=== PATIENT | female | born 1995 | race Caucasian/White ===

== ENCOUNTER 2017-03-23 07:44 | Emergency (ER) | payer MEDICAID, OTHER ==
[~2017-03-23] VITALS: Wt 78.0 kg
[2017-03-23] MEDS ORDERED: IBUPROFEN 200 MG TAB PO STA (08:17)
[2017-03-23] MEDS ORDERED: ACETAMINOPHEN 500 MG TAB PO STA (08:17)
--- NOTE | 2017-03-23 08:21 | ERD ---
ER Documentation Chief Complaint Chief Complaint FEVER AND BODY ACHES SINCE LAST NIGHT. NO COUGH NO SOB OR CP NOTED. HPI 21 year old female complaining of fever, body aches since last night. Patient does admit to having nasal congestion last night. She denies any chest pain, cough, shortness of breath, sore throat, ear pain. Patient states that she does have right lower back pain. Denies dysuria, hematuria ROS All systems reviewed and are negative except as per history of present illness. Medications Home Meds Active Scripts Ibuprofen* (Ibuprofen*) 400 Mg Tablet, 400 MG PO Q6H Y for PAIN, #30 TAB Prov:JACKIE BENITEZ PA-C 03/23/17 Acetaminophen* (Tylenol*) 325 Mg Tablet, 2 TAB PO Q4 Y for PAIN AND OR ELEVATED TEMP, #30 TAB Prov:JACKIE BENITEZ PA-C 03/23/17 Allergies Allergies: Coded Allergies: No Known Allergy (Unverified , 03/23/17) PMhx/Soc History of Surgery: No Anesthesia Reaction: No Hx Neurological Disorder: No Hx Respiratory Disorders: No Hx Cardiac Disorders: No Hx Psychiatric Problems: No Hx Miscellaneous Medical Probl: No Hx Alcohol Use: No Hx Substance Use: No Hx Tobacco Use: No Physical Exam Vitals Vital Signs Date Time Temp Pulse Resp B/P Pulse Ox O2 Delivery O2 Flow Rate FiO2 03/23/17 09:52 99.1 99 101/56 97 Room Air 03/23/17 07:48 101.1 115 20 117/66 99 Physical Exam Const: Developed well-nourished no acute distress Head: Atraumatic Eyes: Normal Conjunctiva ENT: Normal External Ears, Nose and Mouth. Bilateral tympanic membrane is clear Neck: Full range of motion..~ No meningismus. Resp: Clear to auscultation bilaterally Cardio: Regular rate and rhythm, no murmurs Abd: Soft, non tender, non distended. Normal bowel sounds Skin: No petechiae or rashes Back: No midline or flank tenderness Ext: No cyanosis, or edema Neur: Awake and alert Psych: Normal Mood and Affect Results 24 hrs Laboratory Tests Test 03/23/17 08:20 Urine Color YELLOW Urine Clarity CLEAR Urine pH 5.0 Urine Specific [place] 1.027 Urine Ketones NEGATIVEmg/dL Urine Nitrite NEGATIVEmg/dL Urine Bilirubin NEGATIVEmg/dL Urine Urobilinogen NEGATIVEmg/dL Urine Leukocyte Esterase TRACELeu/ul Urine Microscopic RBC 2/HPF Urine Microscopic WBC 5/HPF Urine Squamous Epithelial Cells FEW/HPF Urine Mucus FEW/HPF Urine Hemoglobin NEGATIVEmg/dL Urine Glucose NEGATIVEmg/dL Urine Total Protein NEGATIVEmg/dl Current Medications Medications (Trade) Dose Ordered Sig/Kamryn Route PRN Reason Start Time Stop Time Status Last Admin Dose Admin Acetaminophen (Tylenol Tab) 1,000 mg ONCE STAT PO 03/23/17 08:17 03/23/17 08:18 DC 03/23/17 08:30 Ibuprofen (Motrin) 400 mg ONCE STAT PO 03/23/17 08:17 03/23/17 08:18 DC 03/23/17 08:30 Procedures/MDM 21-year-old female presents to the emergency department with fever since last night, was no evidence of meningitis, pneumonia, urinary tract infection. Patient did not have any evidence of sepsis. She appears well and nontoxic. She was given Tylenol and ibuprofen in the ED, she significant feels a lot better. Vitals are stabilized, patient is able to be discharged home to return to the ER for any worsening signs or symptoms. She understands and agrees with this plan Departure Diagnosis: Primary Impression: Fever Condition: Stable JACKIE BENITEZ PA-C Mar 23, 2017 08:21
[2017-03-23 09:24] LABS: ADD UMIC YES; UR ASCORBIC ACID NEGATIVE (NEGATIVE); UR BILIRUBIN (Dip) NEGATIVE (NEGATIVE); UR BLOOD (Dip) NEGATIVE (NEGATIVE); UR CLARITY CLEAR (CLEAR); UR COLOR YELLOW (YELLOW); UR GLUCOSE (Dip) NEGATIVE (NEGATIVE); UR KETONES (Dip) NEGATIVE (NEGATIVE); UR LEUKOCYTE ESTERASE (Dip) TRACE Leu/ul (NEGATIVE); UR MUCUS FEW /HPF (NONE SEEN); UR NITRITE (Dip) NEGATIVE (NEGATIVE); UR RBC 2 /HPF (0-5); UR SPECIFIC GRAVITY (Dip) 1.027 (1.003-1.030); UR SQUAMOUS EPITHELIAL CELL FEW /HPF (FEW); UR TOTAL PROTEIN (Dip) NEGATIVE (NEGATIVE); UR UROBILINOGEN (Dip) NEGATIVE (NEGATIVE)
[2017-03-23] MEDS ORDERED: IBUP400T22 PO (09:37)
[2017-03-23] MEDS ORDERED: ACET325T33 PO (09:37)
[2017-03-23 09:52] VITALS: BP 101/56; PULSE 99; TEMP 99.1
== END 2017-03-23 09:53 | disposition home or self-care (01) ==
LOC: FTE 07:44
DX: R50.9 Fever, unspecified (principal)
CPT/HCPCS: 81001; Z7502; Z7610; 99283